=== PATIENT | female | born 1935 | race African-American/Black ===

== ENCOUNTER 2023-01-03 14:59 | Emergency (ER) | payer OTHER, MEDICAID ==
[~2023-01-03] VITALS: Ht 175.3 cm; Wt 130.0 kg
[2023-01-03 15:06] VITALS: TEMP 98
[2023-01-03] MEDS ORDERED: AZITHROMYCIN 500MG/250ML 250 ML IV NR (15:49)
[2023-01-03] MEDS ORDERED: CEFTRIAXONE 1GM PREMIX 50 ML IV NR (15:50)
[2023-01-03 17:08] LABS: BG CARBOXYHEMOGLOBIN 0.3 % (0.5-1.5); BG DEOXYHEMOGLOBIN 1.2 % (0.0-5.0); BG FRACTION INSPIRED OXYGEN 28; BG HCO3 ACT 26.6 mmol/L (22.0-26.0); BG METHEMOGLOBIN 0.1 % (0.0-1.5); BG OXYGEN SATURATION 98.8 % (92.0-98.5); BG OXYHEMOGLOBIN 98.4 % (94.0-97.0); BG PCO2 41.6 mmHg (35.0-45.0); BG PH 7.424 (7.350-7.450); BG PO2 140.2 mmHg (75.0-100.0); BG SAMPLE SITE RIGHT BRACHIAL; BG TOTAL HEMOGLOBIN 11.2 g/dL (12.0-18.0); BG VENT MODE NASAL CANNULA
[2023-01-03] MEDS ORDERED: ASPIRIN 325MG EC TABLET PO NR (17:30)
[2023-01-03 17:54] LABS: BASOPHILS % 0.3 % (0.0-2.0); EOSINOPHILS % 1.1 % (0.0-5.0); HEMATOCRIT. 35.1 % (36.0-48.0); HEMOGLOBIN. 11.5 g/dL (12.0-16.0); LYMPHOCYTES % 27.3 % (20.0-50.0); MEAN CORPUSCULAR HEMOGLOBIN 32.2 pg (28.0-32.0); MEAN CORPUSCULAR HGB CONC 32.6 g/dL (31.0-37.0); MEAN CORPUSCULAR VOLUME 98.7 fL (81.0-99.0); MEAN PLATELET VOLUME 8.1 fl (7.4-10.4); MONOCYTES % 10.9 % (2.0-8.0); NEUTROPHILS % 60.4 % (40.0-76.0); PLATELET 196 x1000/uL (130-400); RED BLOOD CELL COUNT 3.56 mill/uL (4.2-5.4); RED CELL DISTRIBUTION WIDTH 14.4 % (11.6-14.6); WHITE BLOOD COUNT 11.6 x1000/uL (4.5-11.0)
[2023-01-03 17:56] LABS: CHLORIDE 100 mEq/L (98-107); INDEX HEMOLYSI 1 (1-3); INDEX ICTERIC 1 (1-4); INDEX LIPEMIC 1 (1-3); POTASSIUM 4.6 mEq/L (3.5-5.1); SODIUM 133 mEq/L (136-145)
[2023-01-03 18:06] LABS: ALANINE AMINOTRANSFERASE 24 IU/L (13-61); ALBUMIN 3.8 g/dL (3.4-5.0); ASPARTATE AMINOTRANSFERASE 28 IU/L (15-37); BILIRUBIN TOTAL 0.7 mg/dL (0.1-1.0); CARBON DIOXIDE 29 mEq/L (21-32); CREATININE 1.3 mg/dL (0.6-1.3); GLUCOSE 101 mg/dL (70-105); NT PRO B-TYPE NATRIURETIC PEP 580 pg/mL (5-125); PROTEIN TOTAL 7.7 g/dL (6.0-8.3); TROPONIN I HIGH SENSITIVITY 18 ng/L (<54); UREA NITROGEN BLOOD 22 mg/dL (7-21)
[2023-01-03 20:10] LABS: TROPONIN I HIGH SENSITIVITY 23 ng/L (<54)
[2023-01-03 21:25] VITALS: BP 162/57; PULSE 72; RESP 16
[2023-01-03 21:51] LABS: TROPONIN I HIGH SENSITIVITY 26 ng/L (<54)
== END 2023-01-03 21:59 | disposition short-term general hospital (02) ==
LOC: ER 14:59
DX: J44.9 Chronic obstructive pulmonary disease, unspecified (principal); R06.02 Shortness of breath; Z20.822 Contact with and (suspected) exposure to COVID-19; I11.0 Hypertensive heart disease with heart failure; I50.9 Heart failure, unspecified
CPT/HCPCS: 36556; 80053; 83880; 85025; 84484; 71045; 82805; 82375; 93005; 96365; 99285; 87426; 36600; 36415; J0456; J0696; C9803